=== PATIENT | male | born 1955 | race Caucasian/White ===

== ENCOUNTER → 2018-02-02 | Outpatient (REF) | LOC: M SMT 10:48 | DX: Z00.00 Encounter for general adult medical examination without abnormal findings (principal) ==

== ENCOUNTER → 2018-08-26 | Outpatient (CLI) | payer OTHER ==
--- NOTE | 2018-08-26 09:53 | REP ---
MRI CERVICAL SPINE WITHOUT CONTRAST: HISTORY: Cervical disc degeneration. Rule out stenosis or nerve impingement. No comparison cervical spine imaging. MRI FINDINGS: There is straightening of the normal cervical lordosis. Cortical and medullary bone signal intensity are normal. Vertebral body heights are preserved. No fracture or collapse is seen. No bony destructive lesion is seen. Craniocervical junction is unremarkable. No extra vertebral abnormality is appreciated. There is degenerative disc disease diffusely. Axial and sagittal images at the C2-3 disc level demonstrate no evidence of disc herniation. There is minimal uncovertebral spurring on the left. No central canal stenosis is seen. At C3-4, there is a small central focal disc protrusion and diffuse bulging is seen in the remainder of the disc. There is mild central canal stenosis effacing the ventral and dorsal subarachnoid space. The ventral margin of the cord is subtly indented by the small central disc protrusion. The midline AP dimension of the thecal sac at this C3-4 level is 7.6 mm. There is uncovertebral spurring and neural foraminal narrowing on the left. Mild uncovertebral spurring is seen on the right. At C4-5, there is diffuse disc bulging and posterior osteophytic ridging mild in degree. There is mild central canal stenosis at C4-5. Midline AP dimension of the thecal sac is 9 mm at C4-5. There is mild right-sided uncovertebral spurring and neural foraminal encroachment. At C5-6, there is moderate posterior disc bulging and osteophytic ridging. This produces central canal stenosis. Midline AP dimension of the thecal sac is 7.8 mm. The cervical cord is displaced dorsally and flattened along its ventral margin, a little more so on the right. There is marked right-sided uncovertebral spurring and neural foraminal encroachment. There is moderate left-sided uncovertebral spurring and neural foraminal encroachment at C5-6. At C6-7, there is diffuse disc bulging and osteophytic ridging mild in degree. There is no cord compression or focal disc protrusion. Bilateral uncovertebral spurring is present. Canal size is borderline. At C7-T1, there is mild diffuse disc bulging and mild bilateral uncovertebral spurring. No cord compression is seen. No significant neural foraminal encroachment. There is disc bulging and osteophytic ridging at the T1-2 and T2-3 in the upper thoracic spine as well without discernible cord compression. IMPRESSION: Diffuse degenerative spondylosis changes. The findings are most pronounced at C5-6 where there is moderate central canal stenosis due to posterior disc bulging and osteophytic ridging. There is significant bilateral neural foraminal encroachment, right greater than left at C5-6. Central canal stenosis is also noted at C4-5 and C3-4. Electronically Signed by Jovani Villareal MD 08/26/2018 01:01 P
== END ==
LOC: M PLARAD 07:38
PROVIDERS: ATTEND Physician Assistant
DX: M50.322 Other cervical disc degeneration at C5-C6 level (principal); M50.222 Other cervical disc displacement at C5-C6 level; M48.02 Spinal stenosis, cervical region

== ENCOUNTER → 2018-11-18 | Outpatient (CLI) | payer OTHER ==
--- NOTE | 2018-11-18 11:49 | REP ---
MRI LEFT ANKLE: TECHNIQUE: Sagittal proton density, STIR, axial proton density fat sat, T1, coronal proton density, STIR. The Achilles, anterior tibial, posterior tibial, flexor hallucis longus and flexor digitorum longus tendons are intact with no tear. However, there is a complete tear of the peroneus brevis tendon with retraction. The distal end is seen posterior to the distal fibula. The adjacent peroneus longus tendon is intact. Anterior and posterior talofibular, calcaneal fibular, tibiofibular and deltoid ligaments are intact. The plantar fascia demonstrates no abnormal signal. Plantar tendon is intact. There is no ganglion cyst. There is a normal amount of joint fluid. There is mild scattered nonspecific subcutaneous soft tissue edema diffusely. There is no bone marrow signal abnormality. There is no bone marrow edema or occult fracture. No osteochondral defect is seen along the talar dome. IMPRESSION: Complete tear peroneus brevis tendon with retraction, distal end is seen posterior to the distal fibula. No other evidence of tendon or ligament tear. Electronically Signed by Benjy Clemenst MD 11/18/2018 06:43 P
== END ==
LOC: M PLARAD 10:12
PROVIDERS: ATTEND Orthopaedic Surgery
DX: M25.572 Pain in left ankle and joints of left foot (principal); S86.312A Strain of muscle(s) and tendon(s) of peroneal muscle group at lower leg level, left leg, initial encounter; X58.XXXA Exposure to other specified factors, initial encounter; Y92.9 Unspecified place or not applicable

== ENCOUNTER → 2018-12-27 | Outpatient (CLI) | payer OTHER ==
--- NOTE | 2018-12-20 16:31 | HPE ---
DATE OF SCHEDULED ADMISSION: 12/27/2018 CHIEF COMPLAINT: Neck pain and upper extremity radiculopathy. HISTORY OF PRESENT ILLNESS: Bebeto is a pleasant 63-year-old male with progressively worsening cervical degenerative disc disease and stenosis. He has failed to improve with conservative treatment. He has elected for surgery for his continued symptoms. He has pain with his activities of daily living. X-rays are notable for degenerative disc disease at multiple levels, anterolisthesis of 2-3 mm at C4-5, traction spurs of C6-7. He is consented for an anterior cervical decompression and fusion at C4-5 and C5-6. This will be with Dr. Cy Hope. Medical optimization was performed by Dr. Parra and Dr. Gaston. ALLERGIES: DEMEROL. CURRENT MEDICATIONS: Lisinopril 40 mg, atenolol 50 mg, fluoxetine 20 mg, chlorthalidone 50 mg, clopidogrel 75 mg, aspirin 81 mg, furosemide 20 mg, cyclobenzaprine 10 mg, tizanidine 4 mg, gabapentin 300 mg, metformin 500 mg, magnesium 400 mg, vitamin D 50 mg. In the evening, he takes, atorvastatin 40 mg, amlodipine 10 mg and tramadol 50 mg. PAST MEDIAL HISTORY: Includes diabetes, hypertension, heart disease, hyperlipidemia, history of a heart attack and anxiety and depression. PAST SURGICAL HISTORY: Includes a heart catheterization SOCIAL HISTORY: This gentleman does not smoke. 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 FAMILY HISTORY: Noncontributory. REVIEW OF SYSTEMS: This patient denies chest pain, heart palpitations, cough, wheezing, difficulty breathing and shortness of breath. He denies abdominal pain, nausea, vomiting, diarrhea or constipation. He denies recent upper respiratory infection or urinary tract infection symptoms. He does complain of persistent neck pain and upper extremity radiculopathy. PHYSICAL EXAMINATION: General: He is well-nourished, well-developed, in no acute distress, alert male. His gait is not wide based or antalgic. He is not using assistive devices. Vital signs: He is 71 inches tall, weighs 314 pounds with a temperature of 97.5, respirations of 16, blood pressure 112/74, and pulse of 74. Neck was supple without adenopathy or jugular venous distension. Lungs were clear to auscultation without rales or wheeze. Heart: Regular rate and rhythm. Abdomen: Bowel sounds were present. Extremities: Examination of the neck revealed intact skin. He had decreased range of motion due to pain and stiffness. LABORATORY DATA: CBC was within normal limits. Glucose 170, BUN 17, creatinine 1.2, sodium 139, potassium 3.5. Pro-time 10.6, INR 1.09. Chest x-ray: Showed no acute cardiopulmonary disease processes. EKG showed normal sinus rhythm at 72 beats per minute. Low voltage QRS complexes. IMPRESSION: Symptomatic cervical degenerative disc disease and spinal stenosis. PLAN: Consented for a C4-5, C5-6 anterior cervical decompression and fusion by Dr. Cy Hope.
[~2018-12-27] VITALS: Ht 180.3 cm; Wt 142.6 kg
[~2018-12-27] MED LIST: AMLO10TA PO; ASPI81TA85 PO; ATEN50TA2 PO; ATOR40TA75 PO; BACITRACIN PWD 50,000 UNITS VIAL As Ordered ONE; CHLO50TA PO; CHOL100029 PO; CYCL10TA PO; FLUO20CA8 PO; FURO20TA2 PO; GABAPENTIN 300 MG CAP PO ONE; GNP250TA9 PO; LACRILUBE (AKWA TEARS) OPHTH OINT 3.5 GM As Ordered ONE; LIDOCAINE 2% INJ 100 MG/5 ML SDV (FOR ANES.) As Ordered ONE; LIDOCAINE W/EPINEPHRINE 1% 20ML VIAL As Ordered ONE; LISI40TA PO; LR 1,000 ML IV ONE; LR 1,000 ML IV SCH; METF500T13 PO; METOCLOPRAMIDE INJ 10MG/2ML VIAL (J2765) IV PRN; MIDAZOLAM INJ 2 MG/2 ML VIAL (J2250) As Ordered ONE; NEUR300C PO; ONDANSETRON 4MG/2ML VIAL (J2405) As Ordered ONE; ONDANSETRON 4MG/2ML VIAL (J2405) IV PRN; PERCOCET 5MG/325MG TAB PO ONE; PERCOCET 5MG/325MG TAB PO PRN; PLAV1TAB2 PO; PROAAER10 INH; PROPOFOL 200 MG/20 ML VIAL As Ordered ONE; ROCURONIUM BROMIDE 50 MG/5 ML VIAL As Ordered ONE; SUGAMMADEX SODIUM 500 MG/5 ML VIAL (BRIDION) As Ordered ONE; THROMBIN SOLN 20,000 UNITS KIT As Ordered ONE; TIZA4CAP PO; TRAM50TA2 PO; ceFAZolin SOD 2 GM in IV 1 EA IV ONE; dexameTHASONE 4 MG/ML 1ML VIAL (J1100) As Ordered ONE; fentaNYL 100 MCG/2 ML INJECTION (J3010) IV PRN; fentaNYL 250 MCG/5 ML INJECTION (J3010) As Ordered ONE; methylPREDNISolone 500 MG VIAL (J2930) As Ordered ONE
--- NOTE | 2018-12-27 08:53 | CR ---
DATE OF CONSULTATION: 12/27/2018 He is here on 12/27/2018 for anterior cervical decompression and fusion procedure. We are cancelling his surgery at this time. It was brought to the attention of the operating surgeon after intubation but prior to prepping and draping that the patient's aspirin and Plavix were last taken on 12/26/2018. This is a relative contraindication to this surgical procedure, unfortunately. We will need to regroup and reschedule. I talked with the patient's son in the recovery room and explained the situation and explained that our system of checks and balances. I was able to identify this problem. Unfortunately, a bit wait in the process but certainly much better than having gone through or started this operative procedure with a high risk of bleeding, and they were understanding. For further details, please refer to the medical record and see Dr. Umair Gaston, cardiology.
[2018-12-27 09:45] VITALS: BP 125/76
== END ==
LOC: M OR 05:55 → UNDOADMIN 05:55 → M SDC 07:30 → EDSTATUS 07:30
PROVIDERS: ATTEND Orthopaedic Surgery
DX: M48.02 Spinal stenosis, cervical region (principal); Z53.9 Procedure and treatment not carried out, unspecified reason
CPT/HCPCS: 36415; 86850; 86900; 86901; J0690; J1100; J2250; J2405; J3010

== ENCOUNTER 2019-01-30 07:18 | Inpatient (IN) | payer OTHER ==
--- NOTE | 2019-01-25 11:26 | HPE ---
DATE OF ADMISSION: 01/30/2019 ATTENDING PHYSICIAN: Dr. Cy Hope CHIEF COMPLAINT: Neck pain with right upper extremity radiculopathy. HISTORY: The patient is a 64-year-old male with multiple medical comorbidities that has had neck pain with right upper extremity radiculopathy for a number of years. The patient has tried multiple conservative measures without relief in symptoms. He has consented for an elective partial corpectomy at C5-6 and C4-5 with a fusion at C5-6 and C4-5 with a plate at C5-6 and 4-5. CURRENT MEDICATIONS: - Tylenol 325 mg daily - albuterol 2 puffs daily as needed - amlodipine 10 mg daily - atenolol 50 mg daily - Lipitor 40 mg daily - vitamin D 2000 units daily - Flexeril 10 mg daily - Lasix 20 mg daily - Neurontin 300 mg three times daily - magnesium 400 mg daily - metformin 500 mg daily - Nitrostat 0.4 mg one tablet as needed - tizanidine 4 mg by mouth daily - tramadol 50 mg by mouth daily - chlorthalidone 50 mg by mouth daily - Plavix 75 mg daily - lisinopril 40 mg daily - aspirin 81 mg daily ALLERGIES: 1. DEMEROL. 2. Cheese. 3. MEPERIDINE. CHRONIC MEDICAL CONDITIONS: Cardiomegaly. History of chest pain. Chronic obstructive pulmonary disease. Coronary artery disease. Diastolic dysfunction. Type 2 diabetes. Hyperlipidemia. Hypertension. Hypomagnesemia. Renal cysts. Low testosterone. Lumbago with sciatica. Left ventricular hypertrophy. History of acute myocardial infarction (MD) times three. Obstructive sleep apnea on CPAP. Arthritis. Shortness of breath. History of syncope. Vitamin D deficiency. Wide complex tachycardia. PAST SURGICAL HISTORY: Arthrectomy. Coronary stent placement. Implant/explant of a loop recorder, MRI approved. SOCIAL HISTORY The patient denies tobacco or alcohol use. No illicit substance abuse. REVIEW OF SYSTEMS: The patient denies fevers, chills, nausea, vomiting or diarrhea. Denies chest pain, lightheadedness, headaches, recent upper respiratory or urinary tract infection symptoms. He denies any abdominal pain. He does continue to have neck pain with activities of daily living. The patient does have intermittent shortness of breath but there is been no change recently. He does have chronic obstructive pulmonary disease. PHYSICAL EXAMINATION GENERAL: Well-nourished, well-developed male in no apparent distress. He is alert, oriented and cooperative. Mood and affect are appropriate. VITAL SIGNS: Height 5 feet 11 inches, weight to 313 pounds, temperature 97.7, blood pressure 120/88, heart rate 83, respirations 17. NECK: Supple without lymphadenopathy. HEART: Regular rate and rhythm. LUNGS: Clear to auscultation bilaterally. ABDOMEN: Bowel sounds are present. Abdomen is soft and nontender to palpation. MUSCULOSKELETAL: The patient does have slightly decreased range of motion of the cervical spine. There is right upper extremity numbness and tingling consistent with his radiculopathy. He has a positive Spurling's maneuver. Deep tendon reflexes were absent at the biceps on the right and 1+ at the biceps on the left. 1+ at the triceps bilaterally and absent at the brachial radialis bilaterally. No clonus. No Correia or Babinski's. Does not seem to have a focal motor deficit. There is tenderness with palpation along the posterior cervical spine to the right of midline. LABORATORY DATA: EKG reveals normal sinus rhythm. MRI reflects cervical spondylosis at multiple levels the most significant at C5- 6 where there is right foraminal stenosis and right-sided spinal stenosis with mild spinal cord deformity to the right. AP diameter of the spinal cord on the right hemicord is about 6.8 mm. There is some degenerative change at C4-5 above this and perhaps some foraminal stenosis to the right at C4-5. At C6-7 there are mild degenerative changes but not severe and no severe stenosis. At C3-4 there are mild degenerative changes with moderate canal stenosis but no cord deformity. Plain films on flexion do reflect 2 mm of spondylolisthesis of C4 on C5 above the C5-6 degeneration level. No other evidence of instability. IMPRESSION: Cervical spinal stenosis at multiple levels with cervical spondylolisthesis and spondylosis. Right sided upper extremity radiculopathy. PLAN: The patient consented for an elective partial corpectomy, fusion and application of plate with donor bone graft at C4-5 and C5-6. Review of pre and postoperative instructions to include, but not limited to, needing to be n.p.o. after midnight, length of stay, when to stop NSAIDs, aspirin and other anticoagulants. Importance of following primary care or roving sizer recommendations for stopping other anticoagulants and the primary care recommendation for how to take daily medications. MTDD
[~2019-01-30] VITALS: Ht 180.3 cm; Wt 141.5 kg
[~2019-01-30 07:18] MED LIST changes: -BACITRACIN PWD 50,000 UNITS VIAL As Ordered ONE; +EMLA CREAM 5GM (LIDOCAINE/PRILOCAINE) TOP PRN; -LACRILUBE (AKWA TEARS) OPHTH OINT 3.5 GM As Ordered ONE; -LIDOCAINE 2% INJ 100 MG/5 ML SDV (FOR ANES.) As Ordered ONE; -LIDOCAINE W/EPINEPHRINE 1% 20ML VIAL As Ordered ONE; -LR 1,000 ML IV SCH; -METOCLOPRAMIDE INJ 10MG/2ML VIAL (J2765) IV PRN; -MIDAZOLAM INJ 2 MG/2 ML VIAL (J2250) As Ordered ONE; -ONDANSETRON 4MG/2ML VIAL (J2405) As Ordered ONE; -ONDANSETRON 4MG/2ML VIAL (J2405) IV PRN; -PERCOCET 5MG/325MG TAB PO PRN; -PROPOFOL 200 MG/20 ML VIAL As Ordered ONE; -ROCURONIUM BROMIDE 50 MG/5 ML VIAL As Ordered ONE; -SUGAMMADEX SODIUM 500 MG/5 ML VIAL (BRIDION) As Ordered ONE; -THROMBIN SOLN 20,000 UNITS KIT As Ordered ONE; -dexameTHASONE 4 MG/ML 1ML VIAL (J1100) As Ordered ONE; -fentaNYL 100 MCG/2 ML INJECTION (J3010) IV PRN; -fentaNYL 250 MCG/5 ML INJECTION (J3010) As Ordered ONE; -methylPREDNISolone 500 MG VIAL (J2930) As Ordered ONE
[2019-01-30] MEDS ORDERED: ROCURONIUM BROMIDE 50 MG/5 ML VIAL As Ordered ONE (08:14)
[2019-01-30] MEDS ORDERED: PROPOFOL 200 MG/20 ML VIAL As Ordered ONE (08:14)
[2019-01-30] MEDS ORDERED: ONDANSETRON 4MG/2ML VIAL (J2405) As Ordered ONE (08:14)
[2019-01-30] MEDS ORDERED: LIDOCAINE 2% INJ 100 MG/5 ML SDV (FOR ANES.) As Ordered ONE (08:14)
[2019-01-30] MEDS ORDERED: CORICAP PO (08:24)
[2019-01-30] MEDS ORDERED: MIDAZOLAM INJ 2 MG/2 ML VIAL (J2250) As Ordered ONE (09:13)
[2019-01-30] MEDS ORDERED: fentaNYL 250 MCG/5 ML INJECTION (J3010) As Ordered ONE (09:13)
[2019-01-30] MEDS ORDERED: BACITRACIN PWD 50,000 UNITS VIAL As Ordered ONE (10:27)
[2019-01-30] MEDS ORDERED: THROMBIN SOLN 20,000 UNITS KIT As Ordered ONE (10:27)
[2019-01-30] MEDS ORDERED: LIDOCAINE W/EPINEPHRINE 1% 20ML VIAL As Ordered ONE (10:27)
[2019-01-30] MEDS ORDERED: PHENYLEPHRINE INJ 10MG/ML VIAL (J2370) As Ordered ONE (10:30)
[2019-01-30] MEDS ORDERED: LACRILUBE (AKWA TEARS) OPHTH OINT 3.5 GM As Ordered ONE (11:07)
[2019-01-30] MEDS ORDERED: SUGAMMADEX SODIUM 500 MG/5 ML VIAL (BRIDION) As Ordered ONE (14:53)
[2019-01-30] MEDS ORDERED: LABETALOL HCL 100 MG/20 ML VIAL As Ordered ONE (15:05)
--- NOTE | 2019-01-30 15:05 | REP ---
Clinical: Status post fixation. Technique: 3 Portable cross-table intraoperative images. Findings: Final images demonstrate the patient to be status post anterior fixation at the C4 - C6 level. Alignment is maintained. Impression: Status post anterior fixation. Electronically Signed by Esdras Khan MD 01/30/2019 02:57 P
[2019-01-30] MEDS ORDERED: MORPHINE 10 MG/ML 1ML VIAL (J2270) IV PRN (15:30)
[2019-01-30] MEDS ORDERED: PERCOCET 5MG/325MG TAB PO PRN ×3 (15:30→15:45)
[2019-01-30] MEDS ORDERED: fentaNYL 100 MCG/2 ML INJECTION (J3010) IV PRN (15:30)
[2019-01-30] MEDS ORDERED: LR 1,000 ML IV SCH (15:30)
[2019-01-30] MEDS ORDERED: D5W/LR 1,000 ML IV SCH (15:30)
[2019-01-30] MEDS ORDERED: ONDANSETRON 4MG/2ML VIAL (J2405) IV PRN ×2 (15:30→15:45)
[2019-01-30] MEDS: LABETALOL HCL 100 MG/20 ML VIAL IV SCH ×15 (15:42→20:16)
[2019-01-30] MEDS ORDERED: hydrALAZINE INJ 20 MG/ML VIAL IV SCH (16:30)
[2019-01-30] MEDS: hydrALAZINE INJ 20 MG/ML VIAL IV SCH ×10 (16:50→20:15)
[2019-01-30] MEDS ORDERED: fentaNYL 100 MCG/2 ML INJECTION (J3010) As Ordered ONE (17:25)
[2019-01-30] MEDS: fentaNYL 100 MCG/2 ML INJECTION (J3010) IV PRN ×4 (17:27→17:50)
[2019-01-30] MEDS ORDERED: LABETALOL HCL 100 MG/20 ML VIAL IV PRN (17:45)
[2019-01-30] MEDS ORDERED: hydrALAZINE INJ 20 MG/ML VIAL IV PRN (17:45)
[2019-01-30] MEDS ORDERED: traMADol 50 MG TAB PO PRN (18:30)
[2019-01-30 18:45] VITALS: BP 152/95
--- NOTE | 2019-01-30 18:47 | HPEPDOC ---
General Date of Admission Jan 30, 2019 at 07:18 Date of Service: Jan 30, 2019 Other Providers Primary team is Dr. Hope Attending Physician: CARMEN HERNÁNDEZ MD Chief Complaint The patient is a 64-year-old male admitted with a reason for visit of Cervical Stenoisis Cervical Spondylolishthesis. History of Present Illness 64 yo man with cervical spinal stenosis at multiple levels with cervical spondylolisthesis and spondylosis with right sided upper extremity radiculopathy, as well as medical history notable for COPD, CAD, HFpEF, DM, HLD, HTN, CARLTON and a history of a wide complex tachycardia who was admitted post an elective partical corpectomy fusion and application of place with donor bone graft at C4-5 and C5-6 for observation, with internal medicine now consulted for co-management of his chronic health conditions. Home Medications Scheduled Amlodipine Besylate (Norvasc) 10 Mg Tablet, 10 MG PO DAILY, (Reported) Aspirin (Aspir 81) 81 Mg Tablet.dr, 81 MG PO DAILY, (Reported) Atenolol (Atenolol) 50 Mg Tablet, 50 MG PO DAILY, (Reported) Atorvastatin Calcium (Atorvastatin Calcium) 40 Mg Tablet, 40 MG PO QHS, (Reported) Chlorthalidone (Chlorthalidone) 50 Mg Tablet, 50 MG PO DAILY, (Reported) Clopidogrel Bisulfate (Plavix) 75 Mg Tablet, 75 MG PO DAILY, (Reported) Fluoxetine Hcl (Fluoxetine HCl) 20 Mg Capsule, 20 MG PO DAILY, (Reported) Furosemide (Furosemide) 20 Mg Tablet, 20 MG PO DAILY, (Reported) Gabapentin (Neurontin) 300 Mg Capsule, 300 MG PO TID, (Reported) Lisinopril (Lisinopril) 40 Mg Tablet, 40 MG PO DAILY, (Reported) Magnesium Oxide (Magnesium) 250 Mg Tablet, 250 MG PO QHS, (Reported) Metformin HCl (Metformin HCl) 500 Mg Tablet, 500 MG PO BID, (Reported) Tizanidine HCl (Tizanidine HCl) 4 Mg Capsule, 4 MG PO TID, (Reported) Vitamin D (Vitamin D3) 1,000 Unit Tablet, 2,000 UNITS PO QHS, (Reported) Scheduled PRN Albuterol Sulfate (Proair Hfa) 8.5 Gm Hfa.aer.ad, 2 PUFF INH for SHORTNESS OF BREATH, (Reported) Tramadol HCl (Tramadol HCl) 50 Mg Tablet, 50 MG PO Q6HP PRN for PAIN, (Reported) Miscellaneous Medications Guaifenesin/Dextromethorphan (Coricidin Hbp Softgel) 1 Each Capsule, 1 CAP PO, (Reported) Allergies Coded Allergies: cheese (Verified Adverse Reaction, Mild, nausea/vomiting, 01/25/19) meperidine (Verified Adverse Reaction, Mild, nausea, 01/25/19) Past Medical History Medical History Chronic obstructive pulmonary disease. Coronary artery disease with chronic angina Diastolic dysfunction. Type 2 diabetes. Hyperlipidemia. Hypertension. Hypomagnesemia. Renal cysts. Low testosterone. Lumbago with sciatica. Left ventricular hypertrophy. History of acute myocardial infarction ([place]) times three. Obstructive sleep apnea on CPAP. Arthritis. Shortness of breath. History of syncope. Vitamin D deficiency. Wide complex tachycardia. Surgical History Arthrectomy. Coronary stent placement. Implant/explant of a loop recorder, MRI approved. Family History Significant Family History: No pertinent family hx Social History * Smoker: Denies Alcohol: Denies Recent Travel/Sick Contacts: Denies: Recent travel, Recent sick contacts Psychosocial History: Depression No alcohol, smoking or illicit drugs A-FIB/CHADSVASC A-FIB History Current/History of A-Fib/PAF?: No Current PO Anticoag Therapy: No Age/Risk Factor Scoring CHADSVASC: CHADSVASC Response (Comments) Value Age Risk Factor Age < 65 years old 0 Gender Risk Factor Male 0 Hx of CHF Yes 1 Hx of HTN Yes 1 Hx of Stroke/TIA/or VTE No 0 Hx of Diabetes Yes 1 Hx of Vascular Disease Yes 1 Total 4 Treatment Treatment ordered: NONE Reason Anticoagulant not given: Not indicated/[id number] Review of Systems Constitutional: Denies: Chills, Fever, Night Sweats Eyes: Denies: Pain, Vision change ENT: Denies: Head Aches, Ear Pain, Dysphagia Skin: Denies: Rash, Lesions, Breakdown Pulmonary: Denies: Dyspnea, Cough Cardiovascular: Denies: Chest Pain, Palpitations, Orthopnea, Paroxysmal Noc. Dyspnea, Lt Headedness Gastrointestinal: Denies: Nausea, Vomiting, Abdominal Pain, Diarrhea Genitourinary: Denies: Dysuria, Frequency, Incontinence, Retention Hematologic: Denies: Bruising, Bleeding Excessively Endocrine: Denies: Polydipsia, Polyphagia, Polyuria, Heat Intolerance, Cold Intolerance, Other Endocrine Sx Musculoskeletal: Reports: Neck Pain, Shoulder Pain (discomfort at this time), Arm Pain (history of radicular pain) Psych: Reports: Depression Physical Examination General Exam: Positive: Alert, No Acute Distress Eye Exam: Positive: PERRLA, Conjunctiva & lids normal, EOMI; Negative: Sclera icteric ENT Exam: Positive: Atraumatic, Mucous membr. moist/pink, Pharynx Normal Neck Exam: Positive: Other (in neck brace. With incision site with clean neat stitches, slightly erythematous but without bleeding or discharge.) Chest Exam: Positive: Clear to auscultation, Normal air movement Heart Exam: Positive: Rate Normal, Regular Rhythm, Normal S1, Normal S2; Negative: Murmurs, Rubs Abdomen Exam: Positive: Normal bowel sounds, Soft, Other (Obese); Negative: Tenderness, Hepatospenomegaly Extremity Exam: Positive: Normal pulses; Negative: Clubbing, Cyanosis, Edema Skin Exam: Positive: Nl turgor and temperature, Other skin issue (as described in neck exam. Surgical incision with neat stitches with no bleeding); Negative: Breakdown, Lesion Neuro Exam: Positive: Other (Normal LE exam, upper extremity and neck exam limited by brace and pain. Cranial nerves 3-12 grossly intact and speech not dysarthric.) Psych Exam: Positive: Mental status NL, Memory Intact, Oriented x 3 Vital Signs Vital Signs Date Time Temp Pulse Resp B/P (MAP) Pulse Ox O2 Delivery O2 Flow Rate FiO2 01/30/19 18:00 89 20 169/75 (106) 94 Nasal Cannula 2 01/30/19 17:20 96.5 Laboratory Data Labs 24H Laboratory Tests 2 01/30/19 08:53: Bedside Glucose (Misc Panel) 130H Assessment/Plan 64 yo man with an extensive medical history who was admitted for observation post an elective partial corpectomy fusion and application of plate with donor bone graft at C4-5 and C5-6 whose surgery went well with ongoing hypertension being managed with IV medications post-op and post-op pain managed well, with medicine now consulted for co-management of his chronic medical conditions. Hypertension: Per nursing in PACU currently being managed with IV meds per hard copy orders of PRN labetalol and hydralazine for goal SBP <170. -Tomorrow may resume amlodipine 10, atenolol 50, chlorthalidone 50, lisinopril 40 -Also to resume lasix 20 daily tomorrow morning DM: -held metformin -will place on SSI -FSBG AC/HS -hypoglycemia protocol Hyperlipidemia -to resume lipitor tomorrow morning CAD: -holding ASA, plavix post op Depression: -to resume home fluoxetine tomorrow AM Diet: NPO, and per surgery plan DVT ppx: SCDs for now, while immediately post op CARLTON: CPAP at home settings COPD: Thus far doing well on room air without evidence of an exacerbation. Pain management: -Per surgical team plan Plan / VTE VTE Prophylaxis Ordered?: Yes CARMEN HERNÁNDEZ MD Jan 30, 2019 18:47
[2019-01-30] MEDS ORDERED: DEXTROSE 50% 50 ML SYRINGE IV PRN (19:00)
[2019-01-30] MEDS ORDERED: GLUCOSE 4 GM CHEW TABLET PO PRN (19:00)
[2019-01-30] MEDS ORDERED: GLUCAGON FOR INJ 1 MG VIAL (J1610) SC PRN (19:00)
[2019-01-30 19:15] VITALS: BP 150/95
[2019-01-30] MEDS: ceFAZolin SOD 2 GM in IV 1 EA IV SCH ×2 (19:32→23:36)
[2019-01-30 20:14] VITALS: BP 154/98
[2019-01-30] MEDS: tiZANidine 4 MG TAB PO SCH (20:57)
[2019-01-30] MEDS: GABAPENTIN 300 MG CAP PO SCH (20:57)
[2019-01-30] MEDS: METAMUCIL (PSYLLIUM) PACKET PO SCH (20:58)
[2019-01-30] MEDS ORDERED: VITAMIN D 1,000 INTERNATIONAL UNITS TABLET PO SCH (21:00)
[2019-01-30] MEDS ORDERED: HumaLOG INSULIN (NovoLOG) PER UNIT SC SCH (21:00)
[2019-01-30] MEDS ORDERED: ATORVASTATIN 20 MG TAB PO SCH (21:00)
[2019-01-30 21:07] VITALS: BP 166/92
[2019-01-30 21:59] VITALS: BP 149/90
[2019-01-31 02:00] VITALS: BP 148/92
[2019-01-31] MEDS ORDERED: MORPHINE 4 MG/ML 1ML VIAL/SYRINGE (J2270) IV PRN (03:00)
[2019-01-31] MEDS ORDERED: NITROGLYCERIN 0.4 MG SUBL TABLET SL PRN (05:45)
[2019-01-31] MEDS ORDERED: ceFAZolin SOD 2 GM in IV 1 EA IV ONE (06:00)
[2019-01-31 06:25] VITALS: BP 147/84
[2019-01-31] MEDS: HumaLOG INSULIN (NovoLOG) PER UNIT SC SCH ×2 (07:30→12:28)
[2019-01-31] MEDS ORDERED: FUROSEMIDE 20 MG TAB PO SCH (09:00)
[2019-01-31] MEDS ORDERED: LISINOPRIL 40 MG TAB PO SCH (09:00)
[2019-01-31] MEDS ORDERED: ATENOLOL 50 MG TAB PO SCH (09:00)
[2019-01-31] MEDS ORDERED: amLODIPine 10 MG TAB PO SCH (09:00)
[2019-01-31] MEDS ORDERED: CHLORTHALIDONE 25 MG TAB PO SCH (09:00)
[2019-01-31] MEDS ORDERED: FLUoxetine 20 MG CAP PO SCH (09:00)
[2019-01-31] MEDS: GABAPENTIN 300 MG CAP PO SCH (09:46)
[2019-01-31 09:47] VITALS: BP 171/93
[2019-01-31] MEDS: tiZANidine 4 MG TAB PO SCH (09:47)
[2019-01-31] MEDS: METAMUCIL (PSYLLIUM) PACKET PO SCH (09:48)
[2019-01-31 10:00] VITALS: BP 171/93
[2019-01-31 14:00] VITALS: BP 121/61
--- NOTE | 2019-01-31 19:01 | IPNPDOC ---
Text Note Date of Service The patient was seen on 01/31/19. NOTE Subjective: -Doing well this morning, no complaints -Pain is well controlled per surgery pain plan -BP now well controlled -Looking forward to discharge home Objective: -Vitals: Hemodynamically stabl and afebrile General: NAD Neck: neck brace in place, with incision site with clean intact stitches with no surrounding erythema Pulm: on room air, speaking in full sentences, CTAB Cardiac: RRR, no mrg Abd: Obese, NTND Ext: WWP, no edema Labs: normal glucose of 115 this morning 64 yo man with an extensive medical history who was admitted for observation post an elective partial corpectomy fusion and application of plate with donor bone graft at C4-5 and C5-6 whose surgery went well and post-op pain managed well, with medicine consulted for co-management of his chronic medical conditions. Hypertension: -amlodipine 10, atenolol 50, chlorthalidone 50, lisinopril 40 -lasix 20 daily tomorrow morning DM: -held metformin while inpatient -SSI -FSBG AC/HS -hypoglycemia protocol Hyperlipidemia -lipitor CAD: -holding ASA, plavix post op per surgery when to restart Depression: -fluoxetine Diet: now on consistent carb, 2g salt diet DVT ppx: SCDs, managed per surgery recs CARLTON: CPAP at home settings COPD: stable Pain management: -Per surgical team plan Dispo: likely going home today VS,Fishbone, I+O VS, Fishbone, I+O Vital Signs Date Time Temp Pulse Resp B/P (MAP) Pulse Ox O2 Delivery O2 Flow Rate FiO2 01/31/19 14:00 97.2 80 22 121/61 (81) 92 Room Air 01/31/19 10:00 2.0 I&O- Last 24 Hours up to 6 AM 01/31/19 06:00 Intake Total 3120 ml Output Total 1575 ml Balance 1545 ml CARMEN HERNÁNDEZ MD Jan 31, 2019 19:01
--- NOTE | 2019-02-01 07:32 | RO ---
DATE OF PROCEDURE: 01/30/2019 PREOPERATIVE DIAGNOSES: Spondylolisthesis at C4-5 and cervical spondylosis at C5-6 with cervical spinal stenosis, C4-5, C5-6. POSTOPERATIVE DIAGNOSES: Spondylolisthesis at C4-5 and cervical spondylosis at C5-6 with cervical spinal stenosis, C4-5, C5-6. PROCEDURE PERFORMED: Partial corpectomy at C5-6 including debridement of approximately 50% of the inferior vertebral body corpus of the C5 level uncinate processes of C6 and removal of the posterior longitudinal ligament at C5-6 with decompression of the severely arthritic collapsed disc space and cervical spinal stenosis, anterior cervical decompression and fusion at the C5-6 level including endplate preparation and placement of graft, anterior cervical decompression and fusion at the C4-5 level including endplate preparation decompression of thecal sac and placement structural graft anterior instrumentation C4-5, C5-6. SURGEON: Dr. Cy Hope DRILL BIT SHARPENER: Shantanu Cárdenas, physician addictions counselor assistant. ANESTHESIA: General endotracheal. ESTIMATED BLOOD LOSS: Less than 15 mL replaced with crystalloid. No complications. INDICATIONS: Mr. Suh is a is a 64-year-old gentleman with quite significant medical comorbidities who has the above-mentioned diagnosis and has elected for operative intervention. He was scheduled for the surgery twice previously however had medical issues that precluded the surgery that has since improved. Axial neck discomfort right upper extremity radicular discomfort. MRI evidence of cervical spinal stenosis primarily the C5-6 level but also plain film evidence of spondylosis and stenosis at C4-5 with spondylolisthesis at C4-5 and spondylosis rather diffuse. COMPONENTS USED: Include few DePuy Crockett 32 mm plate, 6 x 8 graft utilized at C5-6, 5 x 7 graft utilized at C4-5, the G2 structural allograft, 15 mm screws at C4, C6, 14 mm screws at C5. He has elected for operative intervention. Consent reviewed in detail with the patient including molina discussion of pathology involved, the procedure proposed, alternatives including doing nothing, risks including not limited to problems at adjacent levels, infection, bleeding blood loss, medical issues related to the surgery or his other medical conditions. Prior to the surgery, anesthesia placed in A line. DESCRIPTION OF PROCEDURE: Anesthesia placed in the A-line as above. He was brought to the operating room. General endotracheal anesthesia was administered. Once he was positioned in the usual fashion for exposure of the cervical spine, time-out was accomplished. I conducted the procedure using 3.5 loupe magnification. Mr. Cárdenas stood on the left. I stood the patient right for a right-sided anterior cervical approach. The incision was outlined with a marking pen infiltrated with 1% lidocaine. 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 This created significant additional time required to do this procedure approximately an additional hour of dissection due to the careful dissection required because of his spondylolisthesis and cervical degenerative change. The incision was made with a 10 blade developed down through skin subcuticular tissues. Platysma was identified and elevated. The patient had a large distended external jugular that emerged at the omohyoid and this was exposed and ligated and then divided carefully. Dissection continued carotid sheath was identified and protected. Medial structures were protected prevertebral fascia was identified through blunt dissection. Mr. Cárdenas retracted using S retractors. I elevated the prevertebral fascia and several layers exposing the annulus and a probe was placed at C5-6 level. Cross-table lateral x-ray was obtained to verify our level. This area was marked, the probe was removed, the dissection continued superiorly exposing C4-5 as well. Medial border of the longus colli was elevated bilaterally. Large anterior states were removed at C5-6 using [place]. Distraction pins were placed at C5-6 and a shadow line retractor placed exposing C5-6. Minimal distraction was possible with the distraction apparatus oval bur was utilized to implement the inferior corpectomy of the C5 level to facilitate the decompression. 50% of C5 level and was required to be sacrificed in order to implement this. The superior endplate C6 was preserved, however. As I continued uncinate process hypertrophy was appreciated. The uncinate processes of C6 were debrided. Posterior left longitudinal ligament was identified, elevated using curved curettes. Number 1 and 2 long Kerrisons were required due to the patient's neck habitus. Next, thecal sac was directly visualized and decompressed. Irrigation was accomplished. The G2 graft was obtained. The rasps were utilized and we rasped through a size 6 x 8. 6 x 8 sound was placed, the plate graft was placed, tamped into place. Once this was accomplished, inferior distraction pin removed at C6, plugged with wax. Oval bur was utilized to further contour anterior vertebral corpus. Next, distraction pins were plate placed across C4-5. C4-5 distracted. I opened the annulus using 11 plate, remove disc material using pituitaries and curettes. Endplates were debrided using curettes. Next, oval bur was utilized to further debride and square endplates. Uncinate processes were debrided. Posterior longitudinal ligament was encountered, elevated and removed using #1 and 2 Kerrisons decompressing the thecal sac. Next, rasps were utilized through a size 5 x 7 and size 5 x 7 sound was utilized. Size 5 x 7 G2 graft was obtained and implanted. Small amount PROGENIX putty was placed at the anterior inferior portion of the graft due to the curvature of the superior and vertebral corpus of 5. Once this was accomplished, I utilized oval bur to further contour the anterior vertebral corpus of C4-C5 and the distraction pins were removed, holes plugged with wax. Next we sized for a size 32 plate and placed a 32 plate. We drilled and placed 15 mm screws at C4 and C6. At C5, I placed 14 mm screws. Locking device engaged. Next, cross-table lateral was taken to verify plate placement. Two cross-table laterals were required to fully visualize C6 adequately. Next, irrigation was accomplished. We explored the wound to ensure there was no active bleeding. Next the wound was also irrigated with concentrated bacitracin solution. Next, retractors were removed. Platysma reapproximated. Deep dermis re-approximated. The skin reapproximated with Dermabond type solution and a cervical collar was placed. Head halter traction was removed after placement of graft. Next the patient was able to be extubated and moved to the recovery room in good condition moving all four extremities at the conclusion of the case and able to pronate effectively in the recovery room at the conclusion of the case. For further details please refer to the medical record. EXAMINATION Thank you
--- NOTE | 2019-02-02 09:55 | DSES ---
DATE OF ADMISSION: 01/30/2019 DATE OF DISCHARGE: 01/31/2019 ADMITTING DIAGNOSIS: Neck pain with right upper extremity radiculopathy. DISCHARGE DIAGNOSES: Status post partial corpectomy at C5-6 including debridement of approximately 50% of the inferior vertebral body corpus of C5 level, uncinate processes of C6 and removal of posterior longitudinal ligament at C5-6 with decompression of the severely arthritic collapsed disc space and cervical spinal stenosis. Anterior cervical decompression and fusion at C5-6 level including end plate preparation and placement of graft. Anterior cervical decompression and fusion at C4-5 level including endplate preparation, decompression of the thecal sac and placement structural graft anterior instrumentation at C4-5, C5-6. HOSPITAL COURSE: The patient underwent the above detailed procedure under general endotracheal intubation without complications and tolerated the procedure well. Our hospital team felt the patient was ready for discharge on 01/31/2019 with the following instructions. Diet is regular, gabapentin 300 mg three times a day and Percocet as needed or pain, cervical collar per protocol, no lifting and carrying upper extremities, [facility]. The patient is encouraged to contact our office sooner with increased pain, operative site drainage, bleeding, fever greater than 101 and/or any further concerns. WILLIAMS
== END 2019-01-31 15:30 | disposition home or self-care (01) | DRG 321 ==
LOC: M OR 07:18 → M MS5PR 18:35
PROVIDERS: ADMIT Orthopaedic Surgery; ATTEND Orthopaedic Surgery
PROC: 0RB30ZZ Excision of Cervical Vertebral Disc, Open Approach (ICD-10-PCS; 2019-01-30)
PROC: 0RH104Z Insertion of Internal Fixation Device into Cervical Vertebral Joint, Open Approach (ICD-10-PCS; 2019-01-30)
PROC: 0RG20A0 Fusion of 2 or more Cervical Vertebral Joints with Interbody Fusion Device, Anterior Approach, Anterior Column, Open Approach (ICD-10-PCS; principal; 2019-01-30 09:15)
DX: M48.02 Spinal stenosis, cervical region (principal); I11.0 Hypertensive heart disease with heart failure; I50.32 Chronic diastolic (congestive) heart failure; E83.42 Hypomagnesemia; Z79.899 Other long term (current) drug therapy; Z79.82 Long term (current) use of aspirin; Z88.8 Allergy status to other drugs, medicaments and biological substances; Z91.018 Allergy to other foods; J44.9 Chronic obstructive pulmonary disease, unspecified; E11.9 Type 2 diabetes mellitus without complications; G47.33 Obstructive sleep apnea (adult) (pediatric); M19.90 Unspecified osteoarthritis, unspecified site; I25.10 Atherosclerotic heart disease of native coronary artery without angina pectoris; E78.5 Hyperlipidemia, unspecified; I25.2 Old myocardial infarction; E55.9 Vitamin D deficiency, unspecified; M54.5 Low back pain; Z95.1 Presence of aortocoronary bypass graft; F32.9 Major depressive disorder, single episode, unspecified

== ENCOUNTER → 2021-04-18 | Outpatient (CLI) | payer OTHER ==
[~2021-04-18] MED LIST changes: -ASPI81TA85 PO; +ASPI81TA86 PO; +CORICAP PO; +CYCL-707 PO; -CYCL10TA PO; -EMLA CREAM 5GM (LIDOCAINE/PRILOCAINE) TOP PRN; +FLUO-96 PO; -FLUO20CA8 PO; -GABAPENTIN 300 MG CAP PO ONE; +ISOVUE-300 61% 50ML VIAL As Ordered ONE; +LIDOCAINE 1% MDV 20ML VIAL As Ordered ONE; -LISI40TA PO; +LISI40TA4 PO; -LR 1,000 ML IV ONE; -PERCOCET 5MG/325MG TAB PO ONE; -ceFAZolin SOD 2 GM in IV 1 EA IV ONE; +methylPREDNISolone SUSP 40MG/ML 1ML VIAL (DEPO MEDROL) As Ordered ONE
== END ==
LOC: M RADPRO 12:51
PROVIDERS: ATTEND Physician Assistant
DX: S93.622A Sprain of tarsometatarsal ligament of left foot, initial encounter (principal); Y99.8 Other external cause status; Y92.89 Other specified places as the place of occurrence of the external cause; Y93.89 Activity, other specified
CPT/HCPCS: 20605; 77002; J1030; Q9967

== ENCOUNTER 2022-12-10 09:57 | Day surgery (SDC) | payer MEDICARE, OTHER ==
[~2022-12-10] VITALS: Ht 180.3 cm; Wt 132.9 kg
[~2022-12-10 09:57] MED LIST changes: +ACET650T61 PO; +ACETYLCHOLINE OPHTH SOLN 1% 2ML (MIOCHOL-E) As Ordered ONE; +ALBU8.5H INH; +BSS IRRIG/VANCO(10MG)/TOBRA(5MG)/EPINEPH(1:1000-0.5CC)500ML BAG-ORONLY IR ONE; +CEFUROXIME 1MG/0.1ML INTRACAMERAL INJ As Ordered ONE; +CLOP75TA99 PO; +CYCLOPENTOLATE 1% OPHTH SOLN 2ML BTL OS SCH; +D 50CAP3 PO; +ECOT81TA5 PO; +FARX1TAB5 PO; -ISOVUE-300 61% 50ML VIAL As Ordered ONE; -LIDOCAINE 1% MDV 20ML VIAL As Ordered ONE; +LIDOCAINE 1% SDV 5ML VIAL As Ordered ONE; +LIDOCAINE 3.5 % 1ML OPHTH TOPICAL GEL OU ONE; +MIDAZOLAM INJ 2MG/2ML VIAL As Ordered ONE; +OFLOXACIN 0.3 % (OCUFLOX) OPTH SOL 5ML OS ONE; +PHENYLEPHRINE 10% OPHTH SOL 5ML OS PRN; +PHENYLEPHRINE 2.5% OPHTH SOL 2ML OS SCH; -PLAV1TAB2 PO; +PROVISC 10 MG/ML 0.85ML SYRINGE As Ordered ONE; +TROPICAMIDE 1% OPHTH SOLN 15ML OS SCH; +fentaNYL 100 MCG/2 ML INJECTION As Ordered ONE; -methylPREDNISolone SUSP 40MG/ML 1ML VIAL (DEPO MEDROL) As Ordered ONE
[2022-12-10] MEDS ORDERED: INSULIN LISPRO (NovoLOG) PER UNIT SC PRN (11:25)
[2022-12-10 12:05] VITALS: BP 141/69; TEMP 98.4; O2SAT 95
== END 2022-12-10 12:20 | disposition home or self-care (01) ==
LOC: M SDC 09:57
PROVIDERS: ATTEND Ophthalmology
DX: H25.12 Age-related nuclear cataract, left eye (principal); H57.03 Miosis; I10 Essential (primary) hypertension; I25.10 Atherosclerotic heart disease of native coronary artery without angina pectoris; I25.2 Old myocardial infarction; Z98.61 Coronary angioplasty status; Z79.02 Long term (current) use of antithrombotics/antiplatelets; Z79.84 Long term (current) use of oral hypoglycemic drugs; E11.9 Type 2 diabetes mellitus without complications; Z88.8 Allergy status to other drugs, medicaments and biological substances; Z91.018 Allergy to other foods; G47.33 Obstructive sleep apnea (adult) (pediatric); J45.909 Unspecified asthma, uncomplicated; Z79.51 Long term (current) use of inhaled steroids
CPT/HCPCS: 66982; 92015; J0697; J1815; J2250; J3010; V2632

== ENCOUNTER 2023-01-07 09:53 | Day surgery (SDC) | payer MEDICARE ==
[~2023-01-07] VITALS: Ht 180.3 cm; Wt 133.7 kg
[~2023-01-07 09:53] MED LIST changes: -ACETYLCHOLINE OPHTH SOLN 1% 2ML (MIOCHOL-E) As Ordered ONE; +CYCLOPENTOLATE 1% OPHTH SOLN 2ML BTL OD SCH; -CYCLOPENTOLATE 1% OPHTH SOLN 2ML BTL OS SCH; -MIDAZOLAM INJ 2MG/2ML VIAL As Ordered ONE; +OFLOXACIN 0.3 % (OCUFLOX) OPTH SOL 5ML OD ONE; -OFLOXACIN 0.3 % (OCUFLOX) OPTH SOL 5ML OS ONE; +PHENYLEPHRINE 10% OPHTH SOL 5ML OD PRN; -PHENYLEPHRINE 10% OPHTH SOL 5ML OS PRN; +PHENYLEPHRINE 2.5% OPHTH SOL 2ML OD SCH; -PHENYLEPHRINE 2.5% OPHTH SOL 2ML OS SCH; -PROVISC 10 MG/ML 0.85ML SYRINGE As Ordered ONE; +TROPICAMIDE 1% OPHTH SOLN 15ML OD SCH; -TROPICAMIDE 1% OPHTH SOLN 15ML OS SCH; -fentaNYL 100 MCG/2 ML INJECTION As Ordered ONE
[2023-01-07] MEDS ORDERED: INSULIN LISPRO (NovoLOG) PER UNIT SC PRN ×3 (10:30→10:40)
[2023-01-07] MEDS ORDERED: MIDAZOLAM INJ 2MG/2ML VIAL As Ordered ONE (10:57)
[2023-01-07] MEDS ORDERED: fentaNYL 100 MCG/2 ML INJECTION As Ordered ONE (10:57)
[2023-01-07 12:05] VITALS: BP 125/75; TEMP 98.4; O2SAT 95
== END 2023-01-07 12:10 | disposition home or self-care (01) ==
LOC: M SDC 09:53
PROVIDERS: ATTEND Ophthalmology
DX: H25.11 Age-related nuclear cataract, right eye (principal); H57.03 Miosis; Z98.61 Coronary angioplasty status; I25.10 Atherosclerotic heart disease of native coronary artery without angina pectoris; I25.2 Old myocardial infarction; I10 Essential (primary) hypertension; E78.5 Hyperlipidemia, unspecified; E11.9 Type 2 diabetes mellitus without complications; J21.9 Acute bronchiolitis, unspecified; J45.909 Unspecified asthma, uncomplicated; Z91.018 Allergy to other foods; Z88.8 Allergy status to other drugs, medicaments and biological substances; R60.0 Localized edema; G47.33 Obstructive sleep apnea (adult) (pediatric); Z79.51 Long term (current) use of inhaled steroids; F41.9 Anxiety disorder, unspecified; Z79.01 Long term (current) use of anticoagulants; Z79.84 Long term (current) use of oral hypoglycemic drugs; Z79.899 Other long term (current) drug therapy
CPT/HCPCS: 66982; J0697; J1815; J2250; J3010; V2632